=== PATIENT | male | born 1945 | race Caucasian/White ===

== ENCOUNTER 2017-09-30 09:57 | Day surgery (SDC) | payer MEDICARE ==
[~2017-09-30] VITALS: Ht 185.4 cm; Wt 102.3 kg
[~2017-09-30 09:57] MED LIST: CEPH250C PO; DIGO0.12 PO; FAMO20TA2 PO; GABA300C5 PO; KOMB5TAB2 PO; LEVO75TA3 PO; METR-1 PO; MINO100 PO; OXCA150T PO; PARO20TA2 PO; SIMV10TA PO; SOTA80TA PO; SPIR25TA PO; TAMS0.4C4 PO; XARE20TA PO; [UNRECOGNIZED DRUG - CODE] PO
[2017-09-30] MEDS ORDERED: ceFAZolin 2 GM PREMIX 50 ML IV SCH (10:45)
[2017-09-30] MEDS ORDERED: NS 1000 ML IV SCH (10:45)
[2017-09-30] MEDS ORDERED: METOPROLOL TARTRATE 25 MG TAB PO PRN (10:45)
[2017-09-30] MEDS ORDERED: CHLORHEXIDINE GLUCONATE 2 % 1 PACK (2 CLOTHS) TOPICAL PRN (10:45)
[2017-09-30] MEDS ORDERED: Hold AM Insulin & AM Hypoglycemic medications in diabetic patients PRN (10:45)
[2017-09-30] MEDS ORDERED: SODIUM CHLORID 0.9% 500 ML IV PRN (10:45)
[2017-09-30] MEDS ORDERED: POVIDONE IODINE 5% (ANTISEPSIS KIT) 4 APPLICATIONS EACH NARE SCH (10:45)
[2017-09-30] MEDS ORDERED: CHLORHEXIDINE GLUCONATE 2 % 1 PACK (2 CLOTHS) TOPICAL SCH (10:45)
[2017-09-30] MEDS ORDERED: MUPIROCIN 2% OINT 1 APPLIC/GM SYR NASAL SCH (10:45)
[2017-09-30] MEDS ORDERED: LACTATED RINGER'S 1000 ML IV PRN (10:45)
[2017-09-30] MEDS ORDERED: VANCOMYCIN 1000 MG/NS 250 ML IV SCH ×2 (10:45)
[2017-09-30] MEDS ORDERED: NO Heparin, Lovenox, Coumadin at least 12 hours prior to procedure. PRN (10:45)
[2017-09-30] MEDS ORDERED: POVIDONE IODINE 5% (ANTISEPSIS KIT) 4 APPLICATIONS EACH NARE PRN (10:45)
[2017-09-30 11:12] LABS: AUTOMATED NEUTROPHIL # 5.6 TH/MM3 (1.8-7.7); BASOPHIL % 0.4 % (0.0-2.0); EOSINOPHIL # 0.3 TH/MM3 (0-0.4); EOSINOPHIL % 3.8 % (0.0-4.0); HEMATOCRIT 39.6 % (39.0-51.0); HEMOGLOBIN 13.1 GM/DL (13.0-17.0); LYMPH % 13.5 % (9.0-44.0); MEAN CELL VOLUME 81.2 FL (80.0-100.0); MEAN CORPUSCULAR HEMOGLOBIN 26.8 PG (27.0-34.0); MEAN CORPUSCULAR HGB CONC 33.1 % (32.0-36.0); MEAN PLATELET VOLUME 7.3 FL (7.0-11.0); MONO % 9.5 % (0.0-8.0); MONOCYTE # 0.7 TH/MM3 (0-0.9); NEUT % 72.8 % (16.0-70.0); PLATELET COUNT 200 TH/MM3 (150-450); RED BLOOD COUNT 4.88 MIL/MM3 (4.50-5.90); WHITE BLOOD COUNT 7.7 TH/MM3 (4.0-11.0)
[2017-09-30 11:22] LABS: INTERNATIONAL NORMALIZED RATIO 1.1 RATIO; PROTHROMBIN TIME - PATIENT 11.1 SEC (9.8-11.6)
[2017-09-30 11:31] LABS: BICARBONATE 30.8 MEQ/L (21.0-32.0); CALCIUM 9.1 MG/DL (8.5-10.1); CREATININE 1.17 MG/DL (0.60-1.30)
[2017-09-30] MEDS ORDERED: DIFL100T PO (11:46)
[2017-09-30] MEDS ORDERED: LISI-519 PO (11:46)
[2017-09-30] MEDS ORDERED: ESZO1TAB2 PO (11:46)
[2017-09-30] MEDS ORDERED: CALC250T PO (11:46)
[2017-09-30] MEDS ORDERED: DILT30TA PO (11:46)
[2017-09-30] MEDS ORDERED: HUMALOG SQ (11:46)
[2017-09-30] MEDS ORDERED: CHOL5000 PO (11:46)
[2017-09-30] MEDS ORDERED: FLOR250C PO (11:46)
[2017-09-30] MEDS ORDERED: FURO20TA PO (11:46)
[2017-09-30] MEDS ORDERED: LANTUS2P SQ (11:46)
[2017-09-30] MEDS ORDERED: METO25TA3 PO (11:46)
[2017-09-30 11:49] LABS: BANDS 1 % (0-6); LYMPHOCYTES 17 % (9-44); METAMYELOCYTES 2 % (0-1); MONOCYTES 5 % (0-8); NEUTROPHIL # MANUAL DIFF 5.9 TH/MM3 (1.8-7.7); POLYS (SEG NEUTROPHILS) 73 % (16-70)
[2017-09-30] MEDS ORDERED: ceFAZolin INJ 1,000 MG VIAL IV ONE (12:00)
[2017-09-30] MEDS ORDERED: PROPOFOL 200 MG/20 ML AMP IV ONE (12:00)
[2017-09-30 12:16] VITALS: BP 123/62; PULSE 60; RESP 18; TEMP 98.2; O2SAT 95
[2017-09-30] MEDS ORDERED: GENTAMICIN SULFATE 80 MG/2 ML VIAL ONE (12:20)
[2017-09-30] MEDS ORDERED: LIDOCAINE HCL 2% 50 ML VIAL ONE (12:22)
[2017-09-30] MEDS ORDERED: ceFAZolin INJ 1,000 MG VIAL ONE (13:21)
[2017-09-30] MEDS ORDERED: FAMOTIDINE 20 MG/2 ML VIAL ONE (13:31)
--- NOTE | 2017-09-30 14:47 | CATHPROC ---
[employer] HIS Report Study Information Study Number Admission Scheduled Start Study Start [id number] Sep 30 2017 9:57AM 09/30/2017 Sep 30 2017 1:20PM [place] [facility] Cardiac Catheterization Admit Source Facility Department Other [facility] - Fire Marshal Physician and Clinical Staff Initial Sang Garcia Cyber Special Agent Bal Puri RCIS(BS) Other Anesthesia, LEARNING AND DEVELOPMENT ASSISTANT Recorder Esdras LYONS, Carmen Green,RT(R) TECH2 Equipment Time General Operator Description Size Mfg Part Number Used/Scraped 13:27 Franchisee Gladiator MEDICAL DRAPE, RAYSHIELD X-RAY 12X17 12X17 D-100 *[id number] Used [id number] 13:27 Lytics DRAPE, IOBAN 2 [id number] 26cm x 20cm Used *[id number] TP-1103 13:27 Lytics SUTURE, STRIP PLUS 1/2" * Used *[id number] 13:27 MEDLINE PACER ADHESIVE, MASTISOL 2/3CC 2/3CC 0523-48 Used 13:27 MEDLINE PACER BLANDON, LIMB * 2530 *[id number] Used [id number] 13:27 Xooker PACER PACK, PACER CUSTOM * Used *[id number] 13:27 MEDLINE PACER PEN, SKIN DUAL W/ RULER * Used *[id number] *[id number] SUTURE, 0 ETHIBOND [CT1] (CX21D), 8pk SUTURE, 2-0 VICRYL [CT1] (BBI953B) SUTURE, 2-0 VICRYL [CT1] (QOA720O) SUTURE, 4-0 VICRYL [PS2] (YFK125Q) [id number] 13:27 VARDAMAN [employer] BLANKET,WARM AIR CCL * Used *[id number] ENVELOPE, TYRX ANTIBACTERIAL 14:02 TYRX INC. [id number] Used [employer]ETTE [employer] PAD, ELECTROSURGICAL 13:27 * [id number] *[id number] Used SURGICAL GROUNDING ORANGE DEFIBRILLATOR, EVERA MRI XT 14:01 VITATRON MEDTRONIC DDE-DDDR [id number] Used [id number] 13:28 VITATRON MEDTRONIC PLASMABLADE, PEAD 3.0S * Used *[id number] 13:27 ZOLL MEDICAL NORRIS. / * Used *29695 Equipment Model, Serial, Lot Number and Expiration Data Description Model Number Serial Number Lot Number Expiration Date DEFIBRILLATOR, CASEY MRI XT [id number] 10-11-2018 ENVELOPE, CARMEL WILEY [id number] 10-27-2017 LARGE Labs Hgb (g/dl) Hct (%) WBC (l/cumm) Platelets (thousands) 11.60-17.00 35.00-51.00 4.00-11.00 150.00-450.00 13.1 39.6 7.7 200 Glucose (mg/dl) BUN (mg/dl) Creatinine (mg/dl) BUN:Creatinine (1:x) 74.00-106.00 7.00-18.00 0.50-1.30 10.00-20.00 193 24 1.2 20 Na (meq/l) K (meq/l) 136.00-145.00 3.50-5.10 139 4.3 INR (PTT:PT) 0.90-1.10 1.1 CPK-MB (ng/ML) 0.50-3.60 Not Drawn Medication Medication Total Dose (Bolus/Oral) Medication Total Dosage/Unit 2% XYLOCAINE 20 mL Medications (Bolus/Oral) Medication Time Given Dosage/Unit Administered By Reason 2% XYLOCAINE 09/30/2017 1:55:35 PM 20 mL Sang Johnson 20 mL 2% XYLOCAINE given by Sang Johnson in Left shoulder via Subcutaneous. Medication (Drip) Medication Time Given Dosage/Unit Concentration/Unit Diluent (ml) Solution ANCEF 09/30/2017 1:44:50 PM 2 g 2 g ANCEF given in lab by Anesthesia, LEARNING AND DEVELOPMENT ASSISTANT via Peripheral IV. Ordered by Sang Johnson. VANCOMYCIN DRIP 09/30/2017 1:13:53 PM 1 g 1 g VANCOMYCIN DRIP given by Juan David, LEARNING AND DEVELOPMENT ASSISTANT via Peripheral IV. Ordered by Sang Johnson. Chronological Log Time Study Chronological Log 13:03:10 Patient arrived via Bed. 13:03:19 Anesthesia at bedside. Assumes care of patient. 13:03:30 Patient Name, D.O.B, / Armband Verified By R.N. 13:04:15 Consent signed by the physician and the patient and verified by the Fire Marshal staff. 13:04:16 Pre-op and post- op instructions given; patient acknowledges understanding of instructions . 13:04:23 Patient has been NPO for More than 6Hrs. 13:06:39 History and physical on the chart or being dictated. 13:10:18 2% CHLORHEXIDINE GLUCONATE WASH AND NASAL SWIPE DONE PRIOR TO PROCEDURE. 13:10:30 Skin Breakdown- none reported from pt 13:13:44 Patient Warmer Placed on the Table. 13:13:53 1 g VANCOMYCIN DRIP given by Anesthesia, LEARNING AND DEVELOPMENT ASSISTANT via Peripheral IV. Ordered by Blaire Johnson 13:20:46 Disposable Defibrillator Pads Placed On Patient. 13:20:53 A # 20 IV was noted in the Forearm (left). Grade = 0 13:23:03 A # 20 IV was noted in the Forearm (right). Grade = 0 13:25:48 Table restraints applied according to hospital policy 13:25:52 Left Upper Chest Prepped Times Two. 13:27:56 Reference ECG taken 13:32:50 MD paged First Sponge And Instrument Count Done by Ray Dewitt RN. 13:32:59 Hypo's:1 hypo's, Sponges:25 sponges, Bovie/scratch:1 bovie/0 scratch Sutures: 3, Blades: 2, Instruments: 26 13:35:34 MD responded 13:44:33 MD arrived. 13:44:50 2 g ANCEF given in lab by Anesthesia, LEARNING AND DEVELOPMENT ASSISTANT via Peripheral IV. Ordered by Sang Johnson. Time Out. Correct patient, procedure, procedure equipment, site and side verified with physicia n present. Time 13:54:16 concurred by MD, individual staff and LEARNING AND DEVELOPMENT ASSISTANT. Time Out #2 - Consents verified, patient in correct position, all results are labled and displa yed, safety precautions 13:54:21 taken, antibiotics administered. Time out concurred by MD, individual staff and LEARNING AND DEVELOPMENT ASSISTANT in procedu re 13:55:25 Case Start 13:55:35 20 mL 2% XYLOCAINE given by Sang Johnson in Left shoulder via Subcutaneous. 13:57:03 Surgical Incision Made. 14:03:40 A device was explanted. 14:07:31 10 RAY JARAD GAUZE ADDED 14:08:35 antibiotic sponge put into the surgical pocket. 14:09:40 Pocket in L Upper Chest is being modified 14:10:14 Antibiotic sponges removed from the surgical pocket. 14:15:05 Pocket flushed with antibiotic solution 14:15:29 A DEFIBRILLATOR, EVERA MRI XT DR DDE-DDDR was connected and placed in the pocket. Second Sponge And Instrument Count Done by Bal Puri RCIS(BS). 14:18:36 Hypo's:1 hypo's, Sponges:35 sponges, Bovie/scratch:1 bovie/0 scratch Sutures: 3, Blades: 2 14:23:43 The DFT was Success at 20 Joules, 43 Ohms lead impedance and 4.3 ms charge time. 14:24:14 The pocket WAS closed. 14:36:23 Implant Procedure was performed. 14:36:28 A ICD Removal . (Dual) 14:36:42 A ICD Implant . (Dual) 14:36:55 Steri-strips and a sterile dressing applied to site. The Final Sponge And Instrument Count Done by Sang Johnson. 14:36:59 Hypo's:1 hypo's, Sponges:35 sponges, Bovie/scratch: 1 bovie / 0 scratch Sutures: 3, Blades:2, Instruments: 26 14:37:33 Case End 14:37:55 PACU called. Spoke to GERMAN 14:39:54 Bedside Report will be given. 14:43:07 No case complications noted. 14:46:03 Patient moved to [facility] End Study - Contrast Media Used In Study Contrast Total Opened (mL) Total Used (mL) Total Wasted (mL) Unspecified 0 0 0 End Study - Maximum Contrast Load Max Contrast Load (mL) 426.1 End Study - Radiation Exposure Fluoro Time (minutes) 0.1 End Study - Patient Disposition Complications Transferred To No Fire Marshal Holding
[2017-09-30] MEDS ORDERED: MIDAZOLAM HCL 2 MG/2 ML VIAL ONE (14:53)
--- NOTE | 2017-09-30 15:16 | MP ---
cc: Sang Johnson MD DATE OF OPERATION: 09/30/2017 INDICATION: End of life of Medtronic dual chamber defibrillator. Congestive heart failure class II, ischemic cardiomyopathy, the patient is on maximum tolerated guideline directed medical therapy, LVEF 35% on 09/25/2017. The patient has been on guideline directed medical therapy for over 3 months. Previous ICD was placed for primary prevention. The patient has had multiple episodes of ventricular tachycardia treated by the ICD. The current indication is for secondary prevention. EKG rhythm is sinus rhythm. There is a history of paroxysmal atrial fibrillation. Atrial lead was implanted for SVT discrimination. PROCEDURES PERFORMED: 1. Explantation of end of life Medtronic dual chamber defibrillator. 2. Placement of a Medtronic dual chamber MRI compatible defibrillator. 3. Testing of Medtronic defibrillator system. ACCESS SITE: Left subclavicular area. EQUIPMENT USED: Generator: VytronUSa MRI XT DR Younger, MRI compatible defibrillator, serial number [id number]. Right atrial lead: Medtronic model 5076-52 cm. Atrial lead: Serial number [id number] (reused). Right ventricular lead: Medtronic model 6947-55 cm. Right ventricular lead: Serial number [id number] (reused). TYRX absorbable antibacterial envelope, large. LEAD TESTING: Right atrial lead: P-wave 2.8 millivolts, lead impedance 608 ohms, pacing threshold 1.5 volts at 0.4 milliseconds. Right ventricular lead: R-wave 20 millivolts, lead impedance 475 ohms, pacing threshold 1.25 volts at 0.4 milliseconds. Ventricular fibrillation was induced on one occasion and terminated with a single 20 joule shock with an impedance of 42 ohms. Original device placed 03/15/2009. MODE: AAIR - DDDR lower rate 60, upper rate 120. VF 222 BPM, VT 182 BPM, Prepare settings, atrial therapies on. COMPLICATIONS: None. BLOOD LOSS: Less than 10 ccs. DIAGNOSES: 1. Successful replacement of end of life Medtronic dual chamber defibrillator using a new dual chamber MRI compatible device. 2. Successful testing of Medtronic defibrillator system. 3. Defibrillation threshold of 20 joules or less. DISPOSITION: Mr. Anand was given perioperative antibiotics. He will be discharged home later today. I will see him back for a wound check and chronic device reprogramming in our office within 2 weeks. We will continue his long-term device followup. MD RENÉ Simon/ROCKY , 02:42 PM , 03:14 PM ERIC
--- NOTE | 2017-10-01 13:27 | EKG ---
Date Performed: 09/30/2017 Time Performed: 11:15:28 PTAGE: 72 years EKG: Sinus rhythm Inferior infarct - age undetermined Lateral T wave changes may be due to myocardial ischemia Abnorma l ECG PREVIOUS TRACING : 09/30/2017 11.15 DOCTOR: Dorian Murcia Interpretating Date/Time 10/01/2017 13:25:54
== END 2017-09-30 17:13 | disposition home or self-care (01) ==
LOC: HCAT 09:57 → HDIC 09:58 → HCAT 17:13
PROVIDERS: ATTEND Internal Medicine Interventional Cardiology
DX: Z45.02 Encounter for adjustment and management of automatic implantable cardiac defibrillator (principal); I48.0 Paroxysmal atrial fibrillation; I25.10 Atherosclerotic heart disease of native coronary artery without angina pectoris; I25.5 Ischemic cardiomyopathy; I11.0 Hypertensive heart disease with heart failure; I50.9 Heart failure, unspecified; E11.9 Type 2 diabetes mellitus without complications; I73.9 Peripheral vascular disease, unspecified; E78.5 Hyperlipidemia, unspecified; R60.9 Edema, unspecified
CPT/HCPCS: 00530; 33263; 80048; 85007; 85027; 85610; 85730; 93005; 93641; C1721; J0690; J1580; J2250; J3370; J7050